=== PATIENT | male | born 1995 | race Two or more races ===

== ENCOUNTER 2019-11-23 08:31 | Emergency (ER) | payer OTHER ==
[~2019-11-23] VITALS: Ht 175.3 cm; Wt 87.9 kg
[2019-11-23 08:38] VITALS: BP 119/73
== END 2019-11-23 10:15 | disposition home or self-care (01) ==
LOC: ED 08:51
DX: T63.301A Toxic effect of unspecified spider venom, accidental (unintentional), initial encounter (principal); L01.01 Non-bullous impetigo; K13.79 Other lesions of oral mucosa; Y92.89 Other specified places as the place of occurrence of the external cause
CPT/HCPCS: 99283